=== PATIENT | female | born 1995 | race Asian ===

== ENCOUNTER 2021-01-11 11:07 | Emergency (ER) | payer OTHER, SELFPAY ==
[2021-01-11 11:46] VITALS: BP 136/72; PULSE 91; RESP 16; TEMP 36.7; O2SAT 99
--- NOTE | 2021-01-11 11:49 | ED.GENADULT ---
HPI - General Adult General Chief complaint: Nausea/Vomiting/Diarrhea <Ella Day PA-C - Last Filed: 01/11/21 16:55> Stated complaint: vomiting <Ella Day PA-C - Last Filed: 01/11/21 16:55> Time Seen by Provider: 01/11/21 11:48 <Ella Day PA-C - Last Filed: 01/11/21 16:55> Source: patient and family () <Ella Day PA-C - Last Filed: 01/11/21 16:55> Mode of arrival: ambulatory <Ella Day PA-C - Last Filed: 01/11/21 16:55> Limitations: no limitations <Ella Day PA-C - Last Filed: 01/11/21 16:55> History of Present Illness HPI narrative: Patient is here for persistent vomiting related to her . She is 6 weeks , per her 's report she vomited approximately 14 times in the last 24 hours. She is unable to keep any water down. Denies any pain or bleeding. This is her first . <Ella Day PA-C - Last Filed: 01/11/21 16:55> Related Data Allergies/adverse reactions: Allergies Allergy/AdvReac Type Severity Reaction Status Date / Time No Known Allergies Allergy Verified 01/11/21 11:51 <Ella Day PA-C - Last Filed: 01/11/21 16:55> Review of Systems Review of Systems: All systems reviewed & are unremarkable except as noted in HPI and below <Ella Day PA-C - Last Filed: 01/11/21 16:55> [facility] Social History Social History: Social History (Updated 01/11/21 @ 13:22 by Ella Day PA-C) Smoking status: Never smoker Alcohol intake: never Substance use: never Living arrangements: with family <Ella Day PA-C - Last Filed: 01/11/21 16:55> Exam Const: General: alert <Ella Day PA-C - Last Filed: 01/11/21 16:55> Orientation/consciousness: patient oriented x3 <Ella Day PA-C - Last Filed: 01/11/21 16:55> HENMT: Head: normal to inspection <Ella Day PA-C Last Filed: 01/11/21 16:55> Mouth: Yes moist mucous membranes <Elal Day PA-C - Last Filed: 01/11/21 16:55> Eyes: Conjunctivae: conjunctivae normal <Ella Day PA-C - Last Filed: 01/11/21 16:55> Pupils: Equal, round and reactive pupils present <Ella Day PA-C Last Filed: 01/11/21 16:55> Neck: Neck: no lymphadenopathy <Ella Day PA-C Last Filed: 01/11/21 16:55> Resp: Effort & Inspection: normal respiratory effort <Ella Day PA-C Last Filed: 01/11/21 16:55> Auscultation: clear to auscultation bilaterally <ANNIE Pena Last Filed: 01/11/21 16:55> Cardio: Rate: tachycardic <Ella Day PA-C Last Filed: 01/11/21 16:55> Rhythm: regular rhythm <ANNIE Pena Last Filed: 01/11/21 16:55> GI: GI Palp: Yes Soft to palpation <Ella Day PA-C Last Filed: 01/11/21 16:55> Auscultation: Hypoactive bowel sounds present <Ella Day PA-C Last Filed: 01/11/21 16:55> Other: NO pain to palpation. <Ella Day PA-C Last Filed: 01/11/21 16:55> : General: Yes no CVA tenderness <Ella Day PA-C - Last Filed: 01/11/21 16:55> Skin: General skin exam: normal color <Ella Day PA-C - Last Filed: 01/11/21 16:55> Neuro: General: patient oriented x3 and moves all extremities <Ella Day PA-C - Last Filed: 01/11/21 16:55> Extrem: General: normal to inspection <GERBER Pena Last Filed: 01/11/21 16:55> Psych: Affect: Anxious affect present <GERBER Pena Last Filed: 01/11/21 16:55> Course Course Emergency Course: Patient is feeling much better after 1 round of IV fluids and some ODT Zofran. She is unable to urinate will give another bolus of normal saline. Patient's nausea has returned we will treat with some D5 normal saline for her ketosis and recheck her BMP to follow her metabolic acidosis. acidosis is slightly improved. Pt is feeling better after D5. <Ella Day PA-C - Last Filed: 01/11/21 16:55> WATER RESOURCE SPECIALIST/PA Physician Supervision I did not s
[2021-01-11] MEDS: ONDANSETRON HCL ODT 4 MG TABLET PO ×2 (12:33→15:42)
[2021-01-11] MEDS: SODIUM CHLORIDE 0.9% IV 1,000 ML 999 ML IV CONT ×2 (12:34→13:40)
[2021-01-11 13:00] LABS: Basophils Percent Auto 0.1 % (0.2-1.2); Hematocrit 45.9 % (37.0-47.0); Hemoglobin 16.1 g/dL (12.0-15.0); Immature Granulocyte Absolute 0.05 K/mm3 (0.00-0.031); Immature Granulocyte Percent A 0.4 % (0-0.5); Lymphocytes Absolute Auto 1.17 K/mm3 (0.9-3.2); Lymphocytes Percent Auto 8.4 % (18.3-44.2); Mean Corpuscular HGB Conc 35.1 g/dl (32-36); Mean Corpuscular Hemoglobin 30.4 pg (26-34); Mean Corpuscular Volume 86.8 fl (80-100); Mean Platelet Volume 10.8 fl (7.4-10.4); Monocytes Absolute Auto 0.4 K/mm3 (0.1-0.6); Monocytes Percent Auto 2.8 % (2.6-8.5); Neutrophils Absolute Auto 12.3 K/mm3 (1.3-6.7); Neutrophils Percent Auto 88.3 % (45.5-73.1); Platelet Count Result 325 k/mm3 (150-375); Red Blood Count 5.29 M/mm3 (4.2-5.4); Red Cell Distribution Width 12.4 % (11.5-14.5)
[2021-01-11 13:17] LABS: Alanine Aminotransferase 17 U/L (4-35); Albumin Level 5.5 g/dL (3.5-5.1); Alkaline Phosphatase 87 U/L (38-126); Anion Gap 20 mmol/L (8-16); Aspartate Amino Transferase 25 U/L (14-36); Bilirubin,Total 1.3 mg/dL (0.2-1.3); Blood Urea Nitrogen 10 mg/dL (7-17); Calcium 10.5 mg/dL (8.4-10.2); Carbon Dioxide 13 mmol/L (22-30); Chloride 101 mmol/L (98-107); Estimated CRCL calculation 86 ml/min; Estimated Glomerular Filt Rate > 60; Glucose 93 mg/dL (65-110); Lipase 141 U/L (23-300); Potassium 3.6 mmol/L (3.4-5.0); Sodium 134 mmol/L (137-145)
[2021-01-11 13:58] VITALS: BP 102/67; PULSE 95; RESP 18; O2SAT 99
[2021-01-11 14:50] LABS: Add Urine Microscopic? YES; Appearance Urine Cloudy (Clear); Bacteria Urine 2+ /hpf; Bilirubin Urine Negative (Negative); Blood Urine 2+ (Negative); Color Urine Yellow (Yellow); Glucose Urine UA Negative (Negative); Ketones Urine 2+ mg/dL (Negative); Leukocyte Esterase Ur 1+ LEU/UL (Negative); Mucus Urine Rare /lpf; Nitrate Urine Negative (Negative); Protein Urine 2+ mg/dL (Negative); Specific Grav Ur 1.027 (1.001-1.035); Squamous Epithelial Cell Urine Few /hpf (Few); Urobilinogen Urine Negative mg/dL (<2.0)
[2021-01-11] MEDS: DEXTROSE 5%/0.9% SOD CHL 1,000 ML 100 ML IV CONT (15:42)
[2021-01-11 15:43] VITALS: BP 119/73; PULSE 93; RESP 20; O2SAT 99
[2021-01-11 16:16] LABS: Anion Gap 21 mmol/L (8-16); Blood Urea Nitrogen 10 mg/dL (7-17); Carbon Dioxide 14 mmol/L (22-30); Chloride 100 mmol/L (98-107); Estimated CRCL calculation 86 ml/min; Estimated Glomerular Filt Rate > 60; Glucose 95 mg/dL (65-110); Potassium 3.6 mmol/L (3.4-5.0); Sodium 135 mmol/L (137-145)
[2021-01-11] MEDS: NITROFURANTOIN MONOHYD MACROCR 100 MG CAP PO (16:35)
[2021-01-11 17:16] VITALS: BP 112/46; PULSE 76; RESP 18; O2SAT 99
== END 2021-01-11 17:17 | disposition home or self-care (01) ==
PROVIDERS: Physician Assistant; Emergency Provider Emergency Medicine; PCP Emergency Medicine
DX: O21.0 Mild hyperemesis gravidarum (principal); Z3A.01 Less than 8 weeks gestation of pregnancy; R82.998 Other abnormal findings in urine
CPT/HCPCS: 36415; 80048; 80053; 81001; 83690; 85025; 87086; 96360; 96361; 99283; A9270; J7030; J7042

== ENCOUNTER 2021-01-17 12:45 | Emergency (ER) | payer SELFPAY ==
[2021-01-17 12:48] VITALS: BP 103/67; PULSE 110; RESP 18; TEMP 36.1; O2SAT 99
--- NOTE | 2021-01-17 15:54 | PC.NURSE ---
Called to lobby restroom for pt that is bleeding from her mouth . Pt found to have scant amount of blood coming from her chapped lip.
== END 2021-01-18 04:08 | disposition left against medical advice (07) ==
DX: Z53.21 Procedure and treatment not carried out due to patient leaving prior to being seen by health care provider (principal)
CPT/HCPCS: 99199

== ENCOUNTER 2021-01-24 11:39 | Observation (INO) | payer OTHER, SELFPAY ==
[2021-01-24] VITALS (9 sets, daily range): BP systolic 97–114; BP diastolic 55–74; PULSE 84–115; RESP 16; TEMP 36.6–36.8; BMI 17.9
--- NOTE | 2021-01-24 12:05 | OBADM ---
This patient, Sergei Nino, admitted to the OB room OB Post 112 for observation. Patient/family oriented to hospital policies and general routines including ID bracelet, bed and alarms, pain management, procedures, bathroom and other care routines, personal items, smoking policy, room service/diet, call light and visiting hours. Patient/Family are encouraged to report perceived risks to care and to ask questions if they do not understand what they are told or what they should do.
[2021-01-24] MEDS: LACTATED RINGERS 1,000 ML 999 ML IV CONT (12:32)
[2021-01-24] MEDS: ONDANSETRON INJ 4 MG/2 ML VIAL IV PUSH ×2 (12:33→18:32)
--- NOTE | 2021-01-24 12:47 | PC.NURSE ---
Pt states she was prescribed Macrobid in October, she took two capsules, then stopped taking them. Her explains that She takes her Zofran every 8-10 hrs and has been to the hospital many times for nausea. Reinforced education regarding taking the Zofran as prescribed and discussed options to manage nausea. Pt's verbalizes understanding along with patient.
--- NOTE | 2021-01-24 12:52 | PC.NURSE ---
Pt has been unable to urinate to this point in admission. Pt is nauseated and rarely spits into a emesis bag.
[2021-01-24 12:55] LABS: Basophils Percent Auto 0.2 % (0.2-1.2); Eosinophils Percent Auto 0.1 % (0-4.4); Hemoglobin 16.8 g/dL (12.0-15.0); Immature Granulocyte Absolute 0.03 K/mm3 (0.00-0.031); Immature Granulocyte Percent A 0.3 % (0-0.5); Lymphocytes Absolute Auto 1.61 K/mm3 (0.9-3.2); Lymphocytes Percent Auto 16.3 % (18.3-44.2); Mean Corpuscular HGB Conc 36.5 g/dl (32-36); Mean Corpuscular Hemoglobin 30.4 pg (26-34); Mean Corpuscular Volume 83.2 fl (80-100); Mean Platelet Volume 11.4 fl (7.4-10.4); Monocytes Absolute Auto 0.5 K/mm3 (0.1-0.6); Neutrophils Absolute Auto 7.7 K/mm3 (1.3-6.7); Neutrophils Percent Auto 78.1 % (45.5-73.1); Platelet Count Result 294 k/mm3 (150-375); Red Blood Count 5.53 M/mm3 (4.2-5.4); Red Cell Distribution Width 13.5 % (11.5-14.5); White Blood Count 9.9 K/mm3 (4.5-10.0)
[2021-01-24 13:12] LABS: Albumin Level 4.9 g/dL (3.5-5.1); Alkaline Phosphatase 75 U/L (38-126); Anion Gap 20 mmol/L (8-16); Aspartate Amino Transferase 38 U/L (14-36); Bilirubin,Total 1.4 mg/dL (0.2-1.3); Blood Urea Nitrogen 9 mg/dL (7-17); Carbon Dioxide 18 mmol/L (22-30); Chloride 96 mmol/L (98-107); Estimated CRCL calculation 87 ml/min; Estimated Glomerular Filt Rate > 60; Glucose 93 mg/dL (65-110); Potassium 2.9 mmol/L (3.4-5.0); Sodium 134 mmol/L (137-145)
[2021-01-24 13:16] LABS: Alanine Aminotransferase 46 U/L (4-35)
[2021-01-24] MEDS: DEXTROSE 5%/LACTATED RINGERS 1,000 ML 250 ML IV CONT (13:55)
[2021-01-24] MEDS: KCL 40 MEQ/0.45% NS 1,000 ML 100 ML IV CONT (17:54)
--- NOTE | 2021-01-24 17:55 | PM.IMHP ---
H&P: HPI History of Present Illness Date/Time: 01/24/21 17:55 This patient is a 25-year-old 1 at 8 weeks with a missed . She has severe nausea vomiting of . She was admitted for hydration and evaluation. We discussed treatment options for the missed A/ B. risks benefits of each option were described. We have agreed to perform Suction D&C. she understands the risks. She has had that injuries may occur that result in hospitalization, more surgery and severe illness. She denies any fever chills. She denies any chest pain or shortness of breath. Chief Complaint: Nausea vomiting Review of Systems Review of Systems: All systems reviewed & are unremarkable except as noted in HPI and below Constitutional: Constitutional: Denies chills, Denies fatigue, Denies fever(s) and Denies weakness Eyes: Eyes: Denies blurry vision, Denies change in vision, Denies loss of peripheral vision, Denies loss of vision, Denies other visual disturbances and Denies eye pain ENT: Denies vertigo, Denies dizziness, Denies hearing loss, Denies mouth pain, Denies nasal obstruction, Denies neck mass and Denies neck pain Cardiovascular: Cardiovascular: Denies chest pain, Denies diaphoresis, Denies syncope, Denies leg edema and Denies dyspnea Respiratory: Respiratory: Denies chest congestion, Denies cough, Denies hemoptysis, Denies dyspnea and Denies wheezing Gastrointestinal: Gastrointestinal: Denies abdominal pain, Denies constipation, Denies diarrhea, Denies nausea and Denies vomiting Genitourinary: Genitourinary: Denies hematuria, Denies change in libido, Denies nocturia, Denies genital lesions, Denies flank pain and Denies urinary urgency Musculoskeletal: Musculoskeletal: Denies abnormal gait, Denies back pain, Denies myalgias, Denies arthralgias, Denies joint swelling, Denies muscle weakness and Denies neck pain Integumentary/Breasts: Skin/Breast: Denies swelling, Denies breast pain, Denies breast mass, Denies dry skin, Denies nipple discharge, Denies unusual bruising and Denies jaundice Neurologic: Denies Neuro-related abnormal movements, Denies Abnormal speech present, Denies abnormal gait, Denies behavioral changes, Denies confusion, Denies vertigo, Denies dizziness, Denies syncope, Denies loss of vision, Denies memory loss, Denies convulsions and Denies weakness Psychiatric: Psychiatric: Denies abnormal sleep pattern, Denies behavioral changes, Denies change in libido, Denies confusion, Denies depression, Denies anhedonia and Denies memory loss Endocrine: Endocrine: Reports no additional endocrine complaints, Denies change in libido and Denies fatigue Hematologic/Lymphatic: Hematologic/Lymphatic: Reports no additional hematologic/lymphatic complaints Allergic/Immunologic: Allergic/Immunologic: Reports no additional allergic/immunologic complaints and Denies wheezing [facility] Social History Social History (Updated 01/11/21 @ 13:22 by Ella Day PA-C) Smoking status: Never smoker Alcohol intake: never Substance use: never Meds Home Medications and Allergies Home Medications Medication Instructions Recorded Confirmed Type ondansetron HCl [Zofran] 4 mg PO Q6H PRN #14 tablet 01/11/21 Rx Allergies Allergy/AdvReac Type Severity Reaction Status Date / Time No Known Allergies Allergy Verified 01/24/21 11:51 Vital Signs Vital Signs - 24 hr 01/24/21 12:02 01/24/21 12:42 01/24/21 13:02 Pulse Rate 84 115 H 96 Blood Pressure 105/68 97/74 L 114/67 01/24/21 13:40 01/24/21 15:21 01/24/21 17:26 Pulse Rate 97 111 H 106 H Blood Pressure 114/65 100/56 L 102/61 H&P: Results Labs Labs: Short CBC 01/24/21 Range/Units 12:31 WBC 9.9 (4.5-10.0) K/mm3 Hgb 16.8 H (12.0-15.0) g/dL Hct 46.0 (37.0-47.0) % Plt Count 294 (150-375) k/mm3 BMP 01/24/21 12:31 Sodium 134 L Potassium 2.9 L Chloride 96 L Carbon Dioxide 18 L BUN 9 Creatinine 0.60 L Glucose 93 Calcium 10
[2021-01-24 18:30] LABS: Add Urine Microscopic? YES; Appearance Urine Clear (Clear); Bacteria Urine Trace /hpf; Bilirubin Urine Negative (Negative); Blood Urine 1+ (Negative); Color Urine Yellow (Yellow); Glucose Urine UA 1+ mg/dL (Negative); Ketones Urine 2+ mg/dL (Negative); Leukocyte Esterase Ur Trace LEU/UL (NEGATIVE); Nitrate Urine Negative (Negative); Protein Urine 1+ mg/dL (Negative); Specific Grav Ur 1.021 (1.001-1.035); Squamous Epithelial Cell Urine Rare /hpf (Few)
[2021-01-24] MEDS: FAMOTIDINE 20 MG/2 ML VIAL IV PUSH (21:17)
[2021-01-25] VITALS (9 sets, daily range): BP systolic 95–130; BP diastolic 56–67; PULSE 73–95; RESP 12–18; TEMP 36.3–37.2; O2SAT 100
[2021-01-25] MEDS: ONDANSETRON INJ 4 MG/2 ML VIAL IV PUSH (01:05)
--- NOTE | 2021-01-25 08:15 | PM.GYNPNOP ---
SPECIAL LIBRARY LIBRARIAN - A/P Assessment and plan (1) Missed : Code(s): O02.1 - Missed Status: Acute (2) Hyperemesis: Code(s): R11.10 - Vomiting, unspecified Status: Acute Assessment and Plan: This patient is a 25-year-old female with severe nausea vomiting of and a missed miscarriage. We have agreed to treat a missed miscarriage with suction D&C today. That would be performed later in the day. They understand the risks, benefits, and alternatives. This should help with her nausea vomiting of . Postoperative Procedures: Procedures Operation Date: 01/25/21 13:00 <No data on this case meets the specified criteria> Time Spent With Patient Time: Total time spent is greater than 50% in coordination of care (as documented) at patient's floor/unit and/or counseling patient: Time with patient: less than 15 minutes SPECIAL LIBRARY LIBRARIAN- PN:Domingo Post-Op Subjective Date/time seen: 01/25/21 08:15 No bleeding, no cramping,, no nausea vomiting fevers chills. Exam Const: General: healthy appearing, comfortable and no acute distress Resp: Auscultation: clear to auscultation bilaterally, no rales, no rhonchi and no wheezes Cardio: Rate: regular rate Heart sounds: no click, no murmurs and no rubs GI: Inspection: non-distended Auscultation: normal bowel sounds Extrem: General: normal to inspection, no pedal edema and no calf tenderness SPECIAL LIBRARY LIBRARIAN - PN: Obj Data Vital Signs Vital Signs: Vital Signs - 24 hr 01/24/21 12:02 01/24/21 12:30 01/24/21 12:42 Temperature 97.9 F Pulse Rate 84 115 H Respiratory Rate Blood Pressure 105/68 97/74 L 01/24/21 13:02 01/24/21 13:40 01/24/21 15:21 Temperature Pulse Rate 96 97 111 H Respiratory Rate Blood Pressure 114/67 114/65 100/56 L 01/24/21 17:26 01/24/21 18:27 01/24/21 18:36 Temperature 98.2 F Pulse Rate 106 H 100 Respiratory Rate 16 Blood Pressure 102/61 104/55 L 01/25/21 03:25 01/25/21 07:27 Temperature Pulse Rate 86 95 Respiratory Rate Blood Pressure 104/56 L 98/64 L Intake/Output Intake/Output: Intake & Output 01/22/21 01/23/21 01/24/21 01/25/21 23:59 23:59 23:59 23:59 Intake Total 1999 1000 Balance 1999 1000 Meds/Results Medications: Active Medications Generic Name Dose Route Start Last Admin Trade Name Freq PRN Reason Stop Dose Admin Famotidine 20 mg 01/24/21 21:00 01/24/21 21:17 Famotidine 20 Mg/2 Ml Vial IV PUSH 20 mg Q12HR LYNN Administration Fentanyl Citrate 25 mcg 01/25/21 07:34 Fentanyl Citrate Inj (*Crx) 100 Mcg/2 Ml Vial IV PUSH Q2M PRN Pain Lactated Ringer's 1,000 mls @ 30 mls/hr 01/25/21 07:35 Lr - Lactated Ringers Iv IV CONT .Q24H LYNN Lactated Ringer's 1,000 mls @ 30 mls/hr 01/25/21 07:35 Lr - Lactated Ringers Iv IV CONT .Q24H LYNN Ondansetron HCl 4 mg 01/24/21 18:30 01/25/21 01:05 Ondansetron Inj 4 Mg/2 Ml Vial IV PUSH 4 mg Q6H PRN Administration Nausea And Vomiting Ondansetron HCl 4 mg 01/25/21 07:34 Ondansetron Inj 4 Mg/2 Ml Vial IV PUSH ONCE PRN Nausea Oxycodone HCl 5 mg 01/25/21 07:34 Oxycodone Hcl (*Crx) 5 Mg Tab Ir PO ONCE PRN Pain Labs CBC & Chem 7: 01/24/21 12:31 01/24/21 12:31 Labs: Laboratory Results - last 24 hr 01/24/21 01/24/21 01/24/21 12:31 12:31 12:31 WBC 9.9 RBC 5.53 H Hgb 16.8 H Hct 46.0 MCV 83.2 MCH 30.4 MCHC 36.5 H RDW 13.5 Plt Count 294 MPV 11.4 H Immature Gran % (Auto) 0.3 Neut % (Auto) 78.1 H Lymph % (Auto) 16.3 L Price % (Auto) 5.0 Eos % (Auto) 0.1 Baso % (Auto) 0.2 Lymph # (Auto) 1.61 Price # (Auto) 0.5 Eos # (Auto) 0.0 Baso # (Auto) 0.0 Abs Immat Gran (auto) 0.03 Absolute Neuts (auto) 7.7 H Absolute Nucleated RBC 0.0 Nucleated RBC % 0.0 Sodium 134 L Potassium 2.9 L Chloride 96 L Carbon Dioxide 18 L Anion
--- NOTE | 2021-01-25 11:44 | PC.NURSE ---
To OR per stretcher.
--- NOTE | 2021-01-25 12:09 | WPDHPUPDATE1 ---
History and Physical Update Update Date/Time: 01/25/21 12:09 History and Physical has been reviewed, including an updated exam of the patient. There are NO changes in the patient's condition. Risks, benefits, and alternatives have been discussed and questions answered. Patient agrees to proceed with procedure.
--- NOTE | 2021-01-25 12:13 | WPDANESEPPF ---
Anes - Initial Pre Proc Eval Procedure: Operation Date: 01/25/21 13:00 Proposed Procedures p Suction Dilation and Curettage - Lizeth Bianchi MD Date/Time: 01/25/21 12:13 Surgeon: Lizeth Bianchi MD Pre Op Diagnosis: hyperemesis Patient Data Age: 25 Gender: F Height: 1.6 m Weight: 46 kg Last Vital Signs Temp 36.4 C L 01/25/21 11:52 Pulse 94 01/25/21 11:52 Resp 16 01/25/21 11:52 BP 100/65 01/25/21 11:52 Pulse Ox 100 01/25/21 11:52 Allergies Allergy/AdvReac Type Severity Reaction Status Date / Time No Known Allergies Allergy Verified 01/25/21 12:04 Home Medications Medication Instructions Recorded Confirmed Type ondansetron HCl [Zofran] 4 mg PO Q6H PRN #14 tablet 01/11/21 01/25/21 Rx Laboratory Tests 01/24/21 01/24/21 01/24/21 12:31 12:31 12:31 WBC 9.9 K/mm3 K/mm3 (4.5-10.0) RBC 5.53 M/mm3 H M/mm3 (4.2-5.4) Hgb 16.8 g/dL H g/dL (12.0-15.0) Hct 46.0 % % (37.0-47.0) MCV 83.2 fl fl (80-100) MCH 30.4 pg pg (26-34) MCHC 36.5 g/dl H g/dl (32-36) RDW 13.5 % % (11.5-14.5) Plt Count 294 k/mm3 k/mm3 (150-375) MPV 11.4 fl H fl (7.4-10.4) Immature Gran % (Auto) 0.3 % % (0-0.5) Neut % (Auto) 78.1 % H % (45.5-73.1) Lymph % (Auto) 16.3 % L % (18.3-44.2) [place] % (Auto) 5.0 % % (2.6-8.5) Eos % (Auto) 0.1 % % (0-4.4) Baso % (Auto) 0.2 % % (0.2-1.2) Lymph # (Auto) 1.61 K/mm3 K/mm3 (0.9-3.2) [place] # (Auto) 0.5 K/mm3 K/mm3 (0.1-0.6) Eos # (Auto) 0.0 K/mm3 K/mm3 (0-0.3) Baso # (Auto) 0.0 K/mm3 K/mm3 (0.0-0.1) Abs Immat Gran (auto) 0.03 K/mm3 K/mm3 (0.00-0.031) Absolute Neuts (auto) 7.7 K/mm3 H K/mm3 (1.3-6.7) Absolute Nucleated RBC 0.0 K/mm3 K/mm3 (0.0-0.012) Nucleated RBC % 0.0 % % (0.0-0.2) Sodium 134 mmol/L L mmol/L (137-145) Potassium 2.9 mmol/L L mmol/L (3.4-5.0) Chloride 96 mmol/L L mmol/L (98-107) Carbon Dioxide 18 mmol/L L mmol/L (22-30) Anion Gap 20 mmol/L H mmol/L (8-16) BUN 9 mg/dL mg/dL (7-17) Creatinine 0.60 mg/dL L mg/dL (0.7-1.0) Estim Creat Clear Calc 87 ml/min ml/min Estimated GFR > 60 (59 - ) Glucose 93 mg/dL mg/dL (65-110) Calcium 10.0 mg/dL mg/dL (8.4-10.2) Total Bilirubin 1.4 mg/dL H mg/dL (0.2-1.3) AST 38 U/L H U/L (14-36) ALT 46 U/L H U/L (4-35) Alkaline Phosphatase 75 U/L U/L (38-126) Total Protein 8.0 g/dL g/dL (6.3-8.2) Albumin 4.9 g/dL g/dL (3.5-5.1) Urine Color Yellow (Yellow) Urine Appearance Clear (Clear) Urine pH 6.0 (5.0-9.0) Ur Specific [place] 1.021 (1.001-1.035) Urine Protein 1+ mg/dL H mg/dL (Negative) Urine Glucose (UA) 1+ mg/dL H mg/dL (Negative) Urine Ketones 2+ mg/dL H mg/dL (Negative) Ur Blood (Man) 1+ H (Negative) Urine Nitrate Negative (Negative) Urine Bilirubin Negative (Negative) Urine Urobilinogen 4.0 mg/dL H mg/dL (<2.0) Ur Leukocyte Esterase Trace ELIZABETH/UL H ELIZABETH/UL (NEGATIVE) Urine RBC 6-10 /hpf H /hpf (0-2) Urine WBC 4-6 /hpf H /hpf (0-3) Ur Squamous Epith Cells Rare /hpf /hpf (Few) Urine Bacteria Trace /hpf /hpf Patient hx anesthesia problems: none Family hx anesthesia problems: none Results Review: All pre-operative results and documents have been reviewed as part of the pre-operative evaluation. [facility] Social History Social History (Updated 01/11/21 @ 13:22 by Ella Day PA-C) Smoking status: Never smoker Alcohol intake: never Substance use: never Anes -
[2021-01-25] MEDS: LACTATED RINGERS 1,000 ML 30 ML IV CONT ×2 (13:06)
--- NOTE | 2021-01-25 13:13 | P.OP_ITS ---
Procedure Note - Detailed Date of Procedure 01/25/21 Pre-op Diagnosis hyperemesis Post-op Diagnosis same Procedure Performed Suction D&C Surgeon Lizeth Bianchi MD Anesthesia MAC Indications missed Findings normal-appearing vulva vagina and cervix to. Moderate amount of products conception within the uterus. 8 cm uterus Description of Procedure the patient was taken the operating room. She was prepped and draped in dorsal lithotomy position after induction of mac anesthesia. A speculum was placed in the vagina. Cervix grasped with tenaculum. The cervix was dilated to about 1 cm Using Cote dilators. A 8. [place] curved curette was used to perform suction D&C. The curette was introduced and vacuum was applied. The curette was removed over all surfaces of the intrauterine cavity multiple times. This was done until all the surfaces were clear and had the familiar grainy texture they can be felt through the instrument. A sharp curette was then used to curettage all the surfaces. The suction cup was then reapplied 1 more time to remove any debris. The instruments were removed. The speculum and tenaculum were removed. The patient tolerated the procedure well. She was taken recovery room stable condition. Estimated Blood Loss 50 Drains No Packing No Pathology yes Complications No immediate complications Condition stable Disposition PACU
--- NOTE | 2021-01-25 15:40 | PC.NURSE ---
Patient's states that she is feeling better and ready to go home. Patient did node in agreement.
--- NOTE | 2021-03-10 17:16 | PM.DS ---
DS: Admitting Diagnosis Discharge Date 01/25/21 Admitting Diagnosis hyperemesis, vaginal bleeding DS: Discharge Diagnosis Discharge Diagnosis (1) Missed : Code(s): O02.1 - Missed Status: Acute (2) Hyperemesis: Code(s): R11.10 - Vomiting, unspecified Status: Acute DS: Summary Hospital Course Hospital Course: this patient is a 25-year-old multiparous female who presents for hyperemesis and incomplete . She had heavy vaginal bleeding which presented emergency department. Evaluation with ultrasound showed a nonviable with irregular gestational sac in the lower uterine segment. She was severely nauseated. She was admitted and treated with antiemetics and fluids, serial ultrasounds performed. It was thought that she might have passed the . A subsequent ultrasound revealed that she did not. Suction D&C was performed. She remained in the hospital for few hours after a D&C but was discharged home and was admitted less than 24 hours. Time Spent with Patient Time attestation: Total time spent providing and/or coordinating discharge services: DS: Data Data Completed and Pending Completed studies during hospitalization: Pending at discharge 01/25/21 12:54 Surgical [PTH] Routine Discharge Plan Discharge Attending physician on discharge: Lizeth Bianchi Discharging Clinician: Lizeth Bianchi Patient Disposition: Home, Self-Care Activity: pelvic rest Diet: regular Stand Alone Forms: General Discharge Information Follow-up/Referrals: Lizeth Bianchi MD [Physician] - Discharge Medications: Discontinued ondansetron HCl [Zofran] 4 mg tablet 4 mg PO Q6H PRN (Reason: nausea and vomiting) Qty: 14 RF: 0 Date of admission: 01/24/21 11:39 Primary Care Provider: PHYSICIAN,TAX COMPLIANCE OFFICER Admitting Provider: Lizeth Bianchi Attending physician on admission: Lizeth Bianchi Condition: Stable
== END 2021-01-25 14:49 | disposition home or self-care (01) ==
PROVIDERS: Admitting Provider Obstetrics & Gynecology; Visit Provider Obstetrics & Gynecology
PROC: (CPT 59820; principal; 2021-01-25 13:00)
DX: O02.1 Missed abortion (principal); O21.0 Mild hyperemesis gravidarum; Z3A.08 8 weeks gestation of pregnancy
CPT/HCPCS: 59820; 36415; 80053; 81001; 85025; 88305; 96361; 96365; 96366; 96375; 96376; G0378; G0379; J1100; J2405; J2704; J7120; J7121